=== PATIENT | female | born 1970 | race African-American/Black ===

== ENCOUNTER 2017-05-21 05:12 | Emergency (ER) | payer SELFPAY ==
[~2017-05-21] VITALS: Ht 175.3 cm; Wt 72.0 kg
[2017-05-21] MEDS ORDERED: HYDROCODONE/ACETAMINOPHEN 5/325MG TABLET PO ONE (06:15)
[2017-05-21 10:45] VITALS: BP 134/84
== END 2017-05-21 11:19 | disposition home or self-care (01) ==
LOC: ER 05:12
DX: S00.83XA Contusion of other part of head, initial encounter (principal); S09.8XXA Other specified injuries of head, initial encounter; I10 Essential (primary) hypertension; Y04.0XXA Assault by unarmed brawl or fight, initial encounter; Y93.89 Activity, other specified; Y92.59 Other trade areas as the place of occurrence of the external cause
CPT/HCPCS: 70450; 70486; 81025; 99284